=== PATIENT | female | born 1965 | race Caucasian/White ===

== ENCOUNTER 2025-03-17 09:15 | Emergency (ER) | payer OTHER, SELFPAY ==
[2025-03-17 09:25] VITALS: BP 164/73
[2025-03-17 11:13] VITALS: BP 160/68
[2025-03-17 11:20] VITALS: BMI 37.1
--- NOTE | 2025-03-17 11:20 | ED.GENMED ---
History of Present Illness
General
Chief Complaint: Dizziness
Source: patient
Exam Limitations: none
Time Seen by Provider: 03/17/25 11:07
Nursing documentation reviewed up to this point in time: agreed with
History of Present Illness
History of Present Illness:
Patient is a 59-year-old female past medical C. difficile, presents to the ER for evaluation of dizziness. Patient woke up at 1 am to go to the bathroom. She reports when she rolled over to the left she suddenly felt the room spinning. She reports
she was able to go to the bathroom though she did feel little nauseous. She did go back to sleep and 5 AM developed the same symptoms when turning over to get out of bed. She did feel sweaty with this. She had no chest pain or shortness of
breath. She reports 4 years ago she had the same thing occurred but she did not seek treatment. She denies any recent illness fever chills. She denies any trauma. At rest and remaining still she currently is asymptomatic.
Past History
Past History
ED Past Medical History: Asthma
ED Past Surgical History: None
Social History
Tobacco: Former smoker
Alcohol: None
Personal:
Living: with family
Employment: Employed (Self-employed)
Family History
Family History: Other (Noncontributory)
Phy Exam
General Physical Exam
General Presentation: no apparent distress
General age: appears stated age
General Skin: warm and dry
General Habitus: normal
General Mental: alert
General Hydration: appears well hydrated
Eye Exam
Eye Exam: PERRL, EOMI and other (Question myositis to the left horizontal)
Eye Exam General: PERRL: bilateral and EOM intact: bilateral
Pupil Exam: Bilateral: round and reactive
Neurological Exam
Neurological Exam: alert, oriented x3, no motor deficits, no sensory deficits and speech normal
Graham Coma Scale
Eye Opening: Spontaneous
Verbal Response: Oriented
Motor Response: Obeys Commands
GCS Total Score: 15
Musculoskeletal Exam
Musculoskeletal Exam: full ROM
Skin Exam
Skin Exam: normal color and warm/dry
Psychiatric Exam
Psychiatric Exam: normal mood/affect
Course
Orders/Labs/Results
Orders:
Orders
03/17/25 09:17
EKG [Electrocardiogram (*1)] Urgent
Reason for Study: Chest Pain
EKG- Treatment ONCE
03/17/25 11:38
CT Head W/o Iv Contrast Urgent
Comment:
Reason For Exam: vertigo
03/17/25 11:39
IV Insert/Care/Rem.- Treatment PRN
03/17/25 11:41
Complete Blood Count/With Diff Urgent
Comprehensive Metabolic Panel Urgent
03/17/25 11:43
Physical Therapy Consult [Pt Eval And Treat] Urgent
Treatment: evaluate for BPV
Activity Level: As Tolerated
Abnormal Lab Results
03/17/25
11:41
BUN 20 H mg/dl
(7-17)
Glucose 105 H mg/dl
(70-99)
03/17/25 11:41
03/17/25 11:41
Vital Signs
Initial and Last Documented VS:
Initial Vital Signs
Temp Pulse Resp BP Pulse Ox
98.4 F 64 18 164/73 100
03/17/25 09:25 03/17/25 09:25 03/17/25 09:25 03/17/25 09:25 03/17/25 09:25
Last Documented Vital Signs
Temp Pulse Resp BP Pulse Ox
98.4 F 63 17 160/68 99
03/17/25 09:25 03/17/25 12:15 03/17/25 12:15 03/17/25 11:13 03/17/25 11:30
MDM/Problems Addressed
Differential Diagnosis Includes:
Not limited to benign positional vertigo, less likely posterior circulation
MDM/Problems Addressed:
Symptoms are consistent with benign positional vertigo. Patient has similar episode in the past. Symptoms occur with movement turning head to the left. Patient was evaluated by physical therapy and exam is consistent with BPV. Labs unremarkable
will check CAT scan and plan to discharge home with meclizine. Patient was given exercises to do at home from physical therapy.
CAT scan unremarkable patient very well-appearing asymptomatic at this time stable discharge home
*Radiology
Radiology exam reviewed: radiology read reviewed
*Pulse Oximetry
SaO2: 99
Oxygen Mode of Delivery: Room air
Patient hypoxic: no
*EKG
Interpreted by ED Provider?: Yes
Interpretation: normal
Heart Rate: 62
Rate: normal
Rhythm: sinus
Ischemia: non-specific ST changes
*Critical Care Note
Total Time (30-74mins, 75-104mins- exclusive of procedures): Not Applicable
ED Attending Note
-
Portions of this chart may have been created with voice recognition software.� Occasional wrong word or��sound alike� substitutions may have occurred due to the inherent limitations of voice recognition software.
Discharge Plan
Departure
Patient Disposition: Home (Routine Discharge)
Date of Disposition: 03/17/25
Time of Disposition: 13:43
Patient with high blood pressure during this ER visit?: Yes
Condition: Fair
Covid-19: Not Applicable
Discharge Problem:
Benign paroxysmal positional vertigo
Instructions: Vertigo (a Type of Dizziness) (DC), BLOOD PRESSURE
Prescriptions:
New
meclizine 25 mg tablet
25 mg PO TID PRN (Reason: dizziness) Qty: 10 0RF
No Action
ascorbic acid (vitamin C) [Vitamin C] 500 MG tablet
500 mg PO DAILY
zinc 50 MG tablet
50 mg PO DAILY
cholecalciferol (vitamin D3) 1,000 UNITS tablet
1,000 units PO DAILY
multivitamin with folic acid [Tab-A-Cori] 1 TABLET tablet
1 tab PO DAILY
vitamin K2 45 MCG capsule
45 mcg PO DAILY
vancomycin 125 MG capsule
125 mg PO QID 12 Days Qty: 48 0RF
Referrals:
Robi Herrera DO [Family Provider, Family Practice]
Activity Restrictions/Additional Instructions:
As discussed please follow-up closely with your family doctor for reevaluation. In addition a prescription for meclizine was sent to pharmacy take as directed. Return if any worsening of symptoms
Interventions
Interventions:
*Risk Screen - Suicide Last Done: 03/17/25 09:25
*General Assessment Last Done: 03/17/25 09:25
*Neglect/Abuse Screening Last Done: 03/17/25 09:25
*ED- Fall Risk Assessment Last Done: 03/17/25 11:20
*ED COVID-19 Vaccine History Last Done: 03/17/25 11:20
ED- Neurological Assessment Last Done: 03/17/25 11:20
ED- Cardiac Assessment Last Done: 03/17/25 11:20
ED Swallowing Screen Last Done: 03/17/25 11:20
Discharge Date and Time
Print Language: GREENLANDIC
[2025-03-17 11:49] LABS: Hematocrit 37.9 % (37.0-47.0); Hemoglobin 12.6 g/dL (12.0-16.0); Mean Corp Hgb Conc. 33.2 g/dL (33.0-37.0); Mean Corpuscular Volume 87.3 fL (81.0-99.0); Nucleated Red Blood Cells % 0 %; Platelet Count 230 10^3/uL (130-400); Red Cell Dist. Width 11.7 % (11.5-14.5)
[2025-03-17 12:04] LABS: ALT (SGPT) 15 U/L (0-35); AST (SGOT) 21 U/L (14-36); Albumin 4.4 g/dl (3.5-5.0); Alkaline Phosphatase 109 U/L (38-126); Blood Urea Nitrogen 20 mg/dl (7-17); Calcium 9.4 mg/dl (8.4-10.2); Carbon Dioxide 30 mmol/L (22-30); Chloride 104 mmol/L (98-107); Estimated Creatinine Clearance 72 ml/min; Glucose 105 mg/dl (70-99); Potassium 4.3 mmol/L (3.5-5.1); Sodium 139 mmol/L (135-145); Total Protein 7.6 g/dl (6.3-8.2); eGFR > 60.00
== END 2025-03-17 14:41 | disposition home or self-care (01) ==
LOC: EMR 09:15
PROVIDERS: Nurse Practitioner; EMERGENCY PHYSICIAN Emergency Medicine; FAMILY PHYSICIAN Family Medicine
DX: H81.10 Benign paroxysmal vertigo, unspecified ear (principal); J45.909 Unspecified asthma, uncomplicated; Z87.891 Personal history of nicotine dependence
CPT/HCPCS: 99284; 70450; 80053; 85025; 93005